=== PATIENT | female | born 1985 | race Two or more races ===

== ENCOUNTER → 2021-02-06 | Outpatient (CLI) | payer OTHER | END | disposition home or self-care (01) | LOC: SONOGRAMA 14:49 | PROVIDERS: ATTEND Specialist | DX: D21.0 Benign neoplasm of connective and other soft tissue of head, face and neck (principal) ==

== ENCOUNTER 2021-02-17 05:43 | Day surgery (SDC) | payer OTHER | END 2021-02-17 13:25 | disposition home or self-care (01) | LOC: CIR.AMB 05:43 | PROVIDERS: ATTEND Specialist | DX: D17.0 Benign lipomatous neoplasm of skin and subcutaneous tissue of head, face and neck (principal); D17.1 Benign lipomatous neoplasm of skin and subcutaneous tissue of trunk; Z20.822 Contact with and (suspected) exposure to COVID-19 ==